=== PATIENT | female | born 1990 | race Caucasian/White ===

== ENCOUNTER 2018-11-27 16:49 | Emergency (ER) | payer OTHER ==
[2018-11-27 17:02] VITALS: BP 122/62; PULSE 64; TEMP 98.8; BMI 39.2
[2018-11-27] MEDS ORDERED: DEXAMETHASONE LIQUID 0.5 MG/5 ML PO ONE (17:17)
[2018-11-27] MEDS ORDERED: KETOROLAC TROMETHAMINE 30 MG/1 ML VIAL IM ONE (17:17)
[2018-11-27] MEDS ORDERED: KETOROLAC TROMETHAMINE 30 MG/1 ML VIAL ONE (17:50)
[2018-11-27] MEDS ORDERED: DEXAMETHASONE SOD PHOSPHATE 10 MG/1 ML VIAL ONE (17:50)
--- NOTE | 2018-11-27 18:37 | PDOC ---
History of Present Illness - General Chief Complaint: Sore Throat Stated Complaint: SORE THROAT Time Seen by Provider: 11/27/18 17:07 History Source: Patient Exam Limitations: No Limitations Past History - Past Medical History Allergies/Adverse Reactions: Allergies Allergy/AdvReac Type Severity Reaction Status Date / Time No Known Drug Allergies Allergy Verified 11/27/18 17:02 Home Medications: Ambulatory Orders Vit/Iron Fum/Folic AC [ Tablet] 1 each PO DAILY 05/19/15 Docusate Sodium [Colace -] 100 mg PO BID PRN #60 capsule 11/10/15 Ferrous Sulfate 325 mg PO BID #60 tablet 11/10/15 Ibuprofen [Motrin -] 600 mg PO QID #60 tablet 11/10/15 Oxycodone HCl/Acetaminophen [Percocet 5-325 mg Tablet -] 1 - 2 tab PO Q6H #10 tab MDD 6 11/10/15 Asthma: No Cancer: No Cardiac Disorders: No COPD: No Diabetes: No HTN: No Seizures: No Thyroid Disease: No - Reproductive History (#): 1 Para: 0 - Suicide/Smoking/Psychosocial Hx Smoking Status: No Smoking History: Never smoked Have you smoked in the past 12 months: No Number of Cigarettes Smoked Daily: 0 If you are a former smoker, when did you quit?: 1YR AGO 'Breaking Loose' booklet given: 04/05/14 Hx Alcohol Use: No Drug/Substance Use Hx: Yes (marijuana) Substance Use Type: None Hx Substance Use Treatment: No *Physical Exam - Vital Signs Last Vital Signs Temp Pulse Resp BP Pulse Ox 98.8 F 64 18 122/62 98 11/27/18 16:59 11/27/18 16:59 11/27/18 16:59 11/27/18 16:59 11/27/18 16:59 - Physical Exam General Appearance: No: Apparent Distress HEENT: positive: TMs Normal, Pharyngeal Erythema, Other (+B/L tonsillar enlargement with few spots along both tonsils, uvual midline). negative: Nasal Congestion, Rhinorrhea Respiratory/Chest: positive: Lungs Clear, Normal Breath Sounds. negative: Respiratory Distress Cardiovascular: positive: Regular Rhythm, Regular Rate, S1, S2. negative: Murmur Integumentary: positive: Normal Color. negative: Rash Neurologic: positive: Alert, Normal Mood/Affect ED Treatment Course - Medications Given in the ED: ED Medications Discontinued Medications Generic Name Dose Route Start Last Admin Trade Name Sharron PRN Reason Stop Dose Admin Dexamethasone 10 mg 11/27/18 17:17 11/27/18 17:56 Decadron Liquid - PO 11/27/18 17:18 10 mg ONCE ONE Administration Ketorolac Tromethamine 30 mg 11/27/18 17:17 11/27/18 17:57 Toradol Injection - IM 11/27/18 17:18 30 mg ONCE ONE Administration Medical Decision Making - Medical Decision Making 28 y/o F with no sig pmh presents with sore throat from yesterday along with low -grade fever of 99.8 today. Patient took 2 Advils this AM. Also with mild R ear pain. Denies congestion, rhinorrhea, sob, cp, abd pain, n/v/d. Is also concerned because she had oral sex with someone last week; states this is new partner she just recently started dating. Denies other complaints. Rapid strep negative Patient feeling much better after decadron and toradol GC pharyngeal culture also sent Likely tonsillitis stable for dc 11/27/18 18:32 *DC/Admit/Observation/Transfer Diagnosis at time of Disposition: Tonsillitis - Discharge Dispostion Disposition: HOME Condition at time of disposition: Improved Decision to Admit order: No - Referrals Referrals: Jacob Diaz MD [Primary Care Provider] - 2 Days - Patient Instructions Printed Discharge Instructions: DI for Pharyngitis/Tonsillopharyngitis -- Adult Additional Instructions: Thank you for choosing [facility]. It was a pleasure taking care of you. You may take Motrin 600 mg every 6 hours by mouth as needed for mild to moderate pain. Take Motrin with food. Do salt water gargles You will be called back regarding results of culture Follow-up with your doctor in 2 days Return to the Emergency Department if your symptoms worsen or persist or have other concerning symptoms. - Post Discharge Activity
== END 2018-11-27 18:46 | disposition home or self-care (01) ==
LOC: JERFT 16:49
PROC: 3E0233Z Introduction of Anti-inflammatory into Muscle, Percutaneous Approach (ICD-10-PCS; principal; 2018-11-27)
DX: J03.90 Acute tonsillitis, unspecified (principal)
CPT/HCPCS: 36415; 87070; 87077; 87880; 99282-25

== ENCOUNTER 2018-12-02 17:23 | Emergency (ER) | payer SELFPAY ==
[2018-12-02] MEDS ORDERED: AZITHROMYCIN 500 MG TABLET PO ONE (17:34)
[2018-12-02 17:35] VITALS: BP 142/73; PULSE 65; TEMP 98.1; BMI 39.9
--- NOTE | 2018-12-02 17:36 | PDOC ---
Rapid Medical Evaluation Chief Complaint: Revisit, Lab Variance Time Seen by Provider: 12/02/18 17:32 Medical Evaluation: Allergies Allergy/AdvReac Type Severity Reaction Status Date / Time No Known Drug Allergies Allergy Verified 12/02/18 17:31 12/02/18 17:32 28 year old female called positive chlamydia in throat culture. denies vaginal pain / discharge, + unprotected sex with exposure PE: patient alert ox3 A: chlamydia infection P: GC Ceftriaxone azithromycin Discharge Disposition - Diagnosis Chlamydia contact, untreated - Referrals - Patient Instructions - Post Discharge Activity
[2018-12-02] MEDS ORDERED: AZITHROMYCIN 250 MG TABLET ONE ×3 (17:41→18:04)
[2018-12-02] MEDS ORDERED: LIDOCAINE HCL 1%, 10 MG/ML (20ML VIAL) ONE (17:42)
--- NOTE | 2018-12-02 18:01 | PDOC ---
History of Present Illness - General Chief Complaint: Revisit, Lab Variance Stated Complaint: LAB TEST Time Seen by Provider: 12/02/18 17:32 History Source: Patient - History of Present Illness Initial Comments: 12/02/18 17:56 28 year old female called back for + chlamydia throat culture. patient denies abdominal pain, NVD, pelvic pain, urinary symptoms. + IUD reports unprotected sex with a new partner 6 months ago. 2 weeks ago with vaginal discharge none now. currently on her period 12/02/18 18:02 12/02/18 18:22 Past History - Past Medical History Allergies/Adverse Reactions: Allergies Allergy/AdvReac Type Severity Reaction Status Date / Time No Known Drug Allergies Allergy Verified 12/02/18 17:31 Home Medications: Ambulatory Orders Vit/Iron Fum/Folic AC [ Tablet] 1 each PO DAILY 05/19/15 Docusate Sodium [Colace -] 100 mg PO BID PRN #60 capsule 11/10/15 Ferrous Sulfate 325 mg PO BID #60 tablet 11/10/15 Ibuprofen [Motrin -] 600 mg PO QID #60 tablet 11/10/15 Oxycodone HCl/Acetaminophen [Percocet 5-325 mg Tablet -] 1 - 2 tab PO Q6H #10 tab MDD 6 11/10/15 Asthma: No Cancer: No Cardiac Disorders: No COPD: No Diabetes: No HTN: No Seizures: No Thyroid Disease: No - Reproductive History (#): 1 Para: 0 - Immunization History Immunization Up to Date: Yes - Suicide/Smoking/Psychosocial Hx Smoking Status: No Smoking History: Never smoked Have you smoked in the past 12 months: No Number of Cigarettes Smoked Daily: 0 If you are a former smoker, when did you quit?: 1YR AGO 'Breaking Loose' booklet given: 04/05/14 Hx Alcohol Use: No Drug/Substance Use Hx: No Substance Use Type: None Hx Substance Use Treatment: No Review of Systems - Review of Systems Able to Perform ROS?: Yes Is the patient limited Ghanaian proficient: No Constitutional: No: Symptoms Reported, See HPI, Chills, Diaphoresis, Fever, Loss of Appetite, Malaise, Night Sweats, Weakness, Weight Stable, Unintentional Wgt. Loss, Unexplained wgt Loss, Other HEENTM: No: Symptoms Reported, See HPI, Eye Pain, Blurred Vision, Tearing, Recent change in vision, Double Vision, Cataracts, Ear Pain, Ocular Prothesis, Ear Discharge, Nose Pain, Nose Congestion, Tinnitus, Nose Bleeding, Hearing Loss , Throat Pain, Throat Swelling, Mouth Pain, Dental Problems, Difficulty Swallowing, Mouth Swelling, Other ABD/GI: No: Symptoms Reported, See HPI, Abdominal Distended, Abd. Pain w/ defecation, Blood Streaked Bowels, Constipated, Diarrhea, Difficulty Swallowing , Nausea, Poor Appetite, Poor Fluid Intake, Rectal Bleeding, Vomiting, Indigestion, Abdominal cramping, Tarry Stools, Other *Physical Exam - Vital Signs Last Vital Signs Temp Pulse Resp BP Pulse Ox 98.1 F 65 18 142/73 100 12/02/18 17:32 12/02/18 17:32 12/02/18 17:32 12/02/18 17:32 12/02/18 17:32 - Physical Exam General Appearance: Yes: Appropriately Dressed HEENT: positive: Normal ENT Inspection Neck: positive: Trachea midline Respiratory/Chest: positive: Lungs Clear, Normal Breath Sounds Integumentary: positive: Normal Color, Dry, Warm Neurologic: positive: Fully Oriented, Alert, Normal Mood/Affect Medical Decision Making - Medical Decision Making 12/02/18 17:59 A: chlamydia infection; untreated P: GC ua + leuks currently on her menstrual period. no treatment urine patient reports that partner is being treated. 12/02/18 18:21 *DC/Admit/Observation/Transfer Diagnosis at time of Disposition: Chlamydia contact, untreated - Discharge Dispostion Disposition: HOME - Referrals Referrals: Jacob Diaz MD [Primary Care Provider] - - Patient Instructions Printed Discharge Instructions: Chlamydia: The Silent STD Additional Instructions: your partner should be treated. no sex for 1 week after treatment use protection - Post Discharge Activity
[2018-12-02 18:18] LABS: EPI CELLS 4.2 /HPF (0-5/HPF); HYALINE CASTS 0 /lpf (0-8); PH,URINE 6.5 (5.0-8.0); URINE APPEARANCE CLEAR; URINE BACTERIA 78.6 /hpf (NEGATIVE); URINE BILIRUBIN NEGATIVE (NEGATIVE); URINE COLOR YELLOW; URINE GLUCOSE (UA) NEGATIVE (NEGATIVE); URINE KETONE NEGATIVE (NEGATIVE); URINE LEUK ESTERASE 1+ (NEGATIVE); URINE NITRITE NEGATIVE (NEGATIVE); URINE PROTEIN NEGATIVE (NEGATIVE); URINE RBC 0 /hpf (0-4); URINE UROBILINOGEN 0.2 mg/dL (0.2-1.0); URINE WBC 8 /hpf (0-5)
== END 2018-12-02 18:30 | disposition home or self-care (01) ==
LOC: JERFT 17:23
DX: A74.9 Chlamydial infection, unspecified (principal)
CPT/HCPCS: 36415; 81003; 84703; 87491; 87591; 99282-25

== ENCOUNTER 2018-12-08 18:23 | Emergency (ER) | payer SELFPAY ==
[2018-12-08 18:33] VITALS: BP 132/61; PULSE 73; TEMP 98.2; BMI 34.9
--- NOTE | 2018-12-08 18:34 | PDOC ---
Rapid Medical Evaluation Chief Complaint: Revisit, Lab Variance Time Seen by Provider: 12/08/18 18:30 Medical Evaluation: Allergies Allergy/AdvReac Type Severity Reaction Status Date / Time No Known Drug Allergies Allergy Verified 12/08/18 18:31 Vital Signs Temp Pulse Resp BP Pulse Ox 98.2 F 73 19 132/61 99 12/08/18 18:28 12/08/18 18:28 12/08/18 18:28 12/08/18 18:28 12/08/18 18:28 12/08/18 18:32 Patient presents to ED with complaints of: urinary freq and bloating, also here for repeat gc/chylam patient on brief exam: vss, no cva tenderness Patient ordered for: gc, ua, u cx Patient to proceed to the ED Discharge Disposition - Diagnosis Urinary frequency, UTI (urinary tract infection) - Discharge Dispostion Disposition: HOME Condition at time of disposition: Stable Last Admission D/C Date: 11/10/15 - Prescriptions Prescriptions: Cephalexin [Keflex] 500 mg PO TID #15 capsule - Referrals Referrals: Jacob Diaz MD [Primary Care Provider] - - Patient Instructions Additional Instructions: Please take the antibiotics as directed. Return to the emergency room should symptoms worsen. Please follow up with your primary care physician in 1-2 days for further evaluation and treatment options without fail. - Post Discharge Activity
--- NOTE | 2018-12-08 18:50 | PDOC ---
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 12/08/18 18:50 She was also treated for STD 7 days ago and has not been active sexually since treatment Past History - Past Medical History Allergies/Adverse Reactions: Allergies Allergy/AdvReac Type Severity Reaction Status Date / Time No Known Drug Allergies Allergy Verified 12/08/18 18:31 Home Medications: Ambulatory Orders Cephalexin [Keflex] 500 mg PO TID #15 capsule 12/08/18 Asthma: No Cancer: No Cardiac Disorders: No COPD: No Diabetes: No HTN: No Seizures: No Thyroid Disease: No - Reproductive History (#): 1 Para: 0 - Immunization History Immunization Up to Date: Yes - Suicide/Smoking/Psychosocial Hx Smoking Status: No Smoking History: Never smoked Have you smoked in the past 12 months: No Number of Cigarettes Smoked Daily: 0 If you are a former smoker, when did you quit?: 1YR AGO Information on smoking cessation initiated: No 'Breaking Loose' booklet given: 04/05/14 Hx Alcohol Use: No Drug/Substance Use Hx: No Substance Use Type: None Hx Substance Use Treatment: No Review of Systems - Review of Systems Constitutional: No: Fever : Yes: Burning, Dysuria, Frequency *Physical Exam - Vital Signs Last Vital Signs Temp Pulse Resp BP Pulse Ox 98.2 F 73 19 132/61 99 12/08/18 18:28 12/08/18 18:28 12/08/18 18:28 12/08/18 18:28 12/08/18 18:28 - Physical Exam General Appearance: Yes: Appropriately Dressed, Obese. No: Apparent Distress HEENT: positive: Normal ENT Inspection, Normal Voice, Symmetrical Neck: positive: Trachea midline Respiratory/Chest: negative: Respiratory Distress Musculoskeletal: positive: Normal Inspection Extremity: positive: Normal Inspection Integumentary: positive: Normal Color Neurologic: positive: processing lead II-XII NML intact Medical Decision Making - Medical Decision Making 12/08/18 19:18 Will treat for UTI with keflex *DC/Admit/Observation/Transfer Diagnosis at time of Disposition: Urinary frequency, UTI (urinary tract infection) - Discharge Dispostion Disposition: HOME Condition at time of disposition: Stable Decision to Admit order: No - Prescriptions Prescriptions: Cephalexin [Keflex] 500 mg PO TID #15 capsule - Referrals Referrals: Jacob Diaz MD [Primary Care Provider] - - Patient Instructions Additional Instructions: Please take the antibiotics as directed. Return to the emergency room should symptoms worsen. Please follow up with your primary care physician in 1-2 days for further evaluation and treatment options without fail. - Post Discharge Activity
[2018-12-08 19:13] LABS: HYALINE CASTS 1 /lpf (0-8); PH,URINE 5.5 (5.0-8.0); URINE APPEARANCE CLEAR; URINE BACTERIA 22.5 /hpf (NEGATIVE); URINE BILIRUBIN NEGATIVE (NEGATIVE); URINE COLOR YELLOW; URINE GLUCOSE (UA) NEGATIVE (NEGATIVE); URINE KETONE TRACE (NEGATIVE); URINE LEUK ESTERASE NEGATIVE (NEGATIVE); URINE NITRITE NEGATIVE (NEGATIVE); URINE PROTEIN NEGATIVE (NEGATIVE); URINE RBC 1 /hpf (0-4); URINE UROBILINOGEN 0.2 mg/dL (0.2-1.0); URINE WBC 3 /hpf (0-5)
== END 2018-12-08 19:24 | disposition home or self-care (01) ==
LOC: JERFT 18:23
DX: N39.0 Urinary tract infection, site not specified (principal)
CPT/HCPCS: 36415; 81003; 87086; 87491; 87591; 99281-25

== ENCOUNTER → 2020-10-17 | Day surgery (SDC) | payer OTHER | END | disposition home or self-care (01) | LOC: JRADUS-SUR 08:31 | PROVIDERS: ATTEND Internal Medicine | PROC: 0H9T3ZX Drainage of Right Breast, Percutaneous Approach, Diagnostic (ICD-10-PCS; principal; 2020-10-17) | DX: N63.10 Unspecified lump in the right breast, unspecified quadrant (principal) | CPT/HCPCS: 19083; 87899; A4648 ==

== ENCOUNTER 2022-04-10 18:32 | Emergency (ER) | payer OTHER ==
[2022-04-10 18:45] VITALS: RESP 20; TEMP 98.1; BMI 29.3
[2022-04-10] MEDS ORDERED: TRANEXAMIC ACID 1000 MG/10 ML VIAL IVPUSH ONE (19:57)
[2022-04-10] MEDS ORDERED: TRANEXAMIC ACID 1000 MG/10 ML VIAL ONE (20:01)
[2022-04-10] MEDS ORDERED: SODIUM CHLORIDE 0.9% 500 ML INFUS.BAG IV ONE (20:03)
[2022-04-10 20:06] LABS: INR 0.92 (0.83-1.09); PROTHROMBIN TIME (PATIENT) 10.6 SEC (9.7-13.0)
[2022-04-10 20:08] VITALS: BP 146/86; PULSE 99
[2022-04-10 20:13] LABS: BASO % 0.6 % (0-2.0); EOS % 1.1 % (0-4.5); HEMATOCRIT 42.6 % (32.4-45.2); LYMPH % 22.9 % (8-40); MCH 29.9 pg (25.7-33.7); MCHC 32.8 g/dl (32.0-36.0); MEAN CELL VOLUME 91.2 fl (80-96); MEAN PLT VOLUME 9.2 fl (7.5-11.1); MONO % 6.1 % (3.8-10.2); NEUT % 69.3 % (42.8-82.8); PLATELET COUNT 355 10^3/uL (134-434); RBC 4.67 M/mm3 (3.60-5.2); WHITE BLOOD COUNT 14.4 K/mm3 (4.0-10.0)
[2022-04-10] MEDS ORDERED: ONDANSETRON 4 MG/2 ML VIAL ONE (20:13)
[2022-04-10 20:14] LABS: CALCIUM 8.7 mg/dL (8.5-10.1)
[2022-04-10 20:15] LABS: ALBUMIN 3.7 g/dl (3.4-5.0); BLOOD UREA NITROGEN 15.5 mg/dL (7-18)
[2022-04-10 20:18] LABS: CREATININE 0.9 mg/dL (0.55-1.3)
[2022-04-10 20:19] LABS: BILIRUBIN,TOTAL 0.2 mg/dL (0.2-1); TOT PROT 7.4 g/dl (6.4-8.2)
[2022-04-10] MEDS ORDERED: ONDANSETRON 4 MG/2 ML VIAL IVPUSH ONE (20:21)
== END 2022-04-10 20:40 | disposition short-term general hospital (02) ==
LOC: JER 18:32
PROC: 3E033GC Introduction of Other Therapeutic Substance into Peripheral Vein, Percutaneous Approach (ICD-10-PCS; principal; 2022-04-10)
DX: S09.90XA Unspecified injury of head, initial encounter (principal); M25.551 Pain in right hip; M25.521 Pain in right elbow; R10.9 Unspecified abdominal pain; V03.00XA Pedestrian on foot injured in collision with car, pick-up truck or van in nontraffic accident, initial encounter
CPT/HCPCS: 0241U-QW; 36415; 80053; 83605; 83690; 84484; 84703; 85025; 85610; 85730; 86850; 86900; 86901; 99285-25

== ENCOUNTER 2023-03-08 13:34 | Emergency (ER) | payer OTHER ==
[2023-03-08 13:45] VITALS: BP 142/74; RESP 18; TEMP 100.2; BMI 44.9
[2023-03-08] MEDS ORDERED: ACETAMINOPHEN 500 MG TABLET (FP) PO ONE (15:17)
[2023-03-08] MEDS ORDERED: ACETAMINOPHEN 500 MG TABLET (FP) ONE (15:20)
[2023-03-08] MEDS ORDERED: ALBUTEROL SO4 2.5/IPRATROPIUM 0.5 INH SOL 3 ML VIAL.NEB. NEB ONE (16:00)
[2023-03-08 16:52] VITALS: PULSE 97
== END 2023-03-08 16:59 | disposition home or self-care (01) ==
LOC: JERFT 13:34
PROC: 3E0F7GC Introduction of Other Therapeutic Substance into Respiratory Tract, Via Natural or Artificial Opening (ICD-10-PCS; principal; 2023-03-08)
DX: R50.9 Fever, unspecified (principal); R05.9 Cough, unspecified; J10.1 Influenza due to other identified influenza virus with other respiratory manifestations; Z20.822 Contact with and (suspected) exposure to COVID-19
CPT/HCPCS: 0241U-QW; 71046-TC-FY; 99284-25

== ENCOUNTER 2024-06-06 06:25 | Inpatient (IN) | payer OTHER ==
[2024-06-06 07:40] LABS: BASO % 1.1 % (0-2.0); EOS % 1.4 % (0-4.5); HEMATOCRIT 35.2 % (32.4-45.2); HEMOGLOBIN 11.9 GM/dL (10.7-15.3); LYMPH % 29.9 % (8-40); MCHC 33.9 g/dl (32.0-36.0); MEAN CELL VOLUME 85.5 fl (80-96); MEAN PLT VOLUME 10.2 fl (7.5-11.1); MONO % 5.6 % (3.8-10.2); PLATELET COUNT 218 10^3/uL (134-434); RBC 4.12 M/mm3 (3.60-5.2); WHITE BLOOD COUNT 9.3 K/mm3 (4.0-10.0)
[2024-06-06 07:43] VITALS: BMI 40.9
[2024-06-06] MEDS ORDERED: FENTANYL CITRATE/PF 50 MCG/ML VIAL ONE ×2 (07:52→07:55)
[2024-06-06] MEDS ORDERED: morphine SULFATE/PF 1 MG/2 ML (2cc Syringe - QUVA) ONE (07:52)
[2024-06-06 07:54] LABS: BLOOD UREA NITROGEN 10.1 mg/dL (7-18); CALCIUM 8.6 mg/dL (8.5-10.1); INR 0.95 (0.83-1.09); PROTHROMBIN TIME (PATIENT) 10.5 SEC (9.7-13.0)
[2024-06-06 07:56] LABS: ACTIVATED PTT 28.2 SECONDS (25.2-36.5)
[2024-06-06 07:58] LABS: CREATININE 0.5 mg/dL (0.55-1.3)
[2024-06-06] MEDS: CITRIC ACID/SODIUM CITRATE 30 ML UNIT-DOSE CUP PO ONE (08:10)
[2024-06-06] MEDS ORDERED: ONDANSETRON 4 MG/2 ML VIAL ONE (08:49)
[2024-06-06] MEDS ORDERED: ceFAZolin SODIUM 1 GM VIAL ONE (08:49)
[2024-06-06] MEDS ORDERED: OXYTOCIN 10 UNITS/ML VIAL ONE (09:08)
[2024-06-06] MEDS ORDERED: OXYTOCIN 20 UNITS in 0.9% NS 20 UNIT/1,000 ML INFUS.BAG IV ONE (10:53)
[2024-06-06] MEDS ORDERED: BENZOCAINE 28 GM HEMORRHOIDAL OINTMENT TP PRN (10:57)
[2024-06-06] MEDS ORDERED: WITCH HAZEL 50% (TUCKS) 40 PAD/JAR PAD TP PRN (10:57)
[2024-06-06] MEDS ORDERED: ACETAMINOPHEN 325 MG TABLET (FP) PO PRN (10:57)
[2024-06-06] MEDS ORDERED: BENZOCAINE 20% 57 GM BOTTLE TP PRN (10:57)
[2024-06-06] MEDS ORDERED: METHYLERGONOVINE MALEATE 0.2 MG/1 ML AMP IM PRN (10:57)
[2024-06-06] MEDS: OXYTOCIN 20 UNITS in 0.9% NS 20 UNIT/1,000 ML INFUS.BAG IV SCH (11:00)
[2024-06-06] MEDS ORDERED: oxyCODONE HCL 5 MG TABLET PO PRN ×2 (22:57)
[2024-06-07] MEDS: SIMETHICONE 80 MG TAB.CHEW (FP) PO PRN (02:35)
[2024-06-07] MEDS: IBUPROFEN 800 MG/8 ML IJ IVPB PRN (02:35)
[2024-06-07 07:44] LABS: BASO % 0.4 % (0-2.0); EOS % 1.4 % (0-4.5); HEMOGLOBIN 11.7 GM/dL (10.7-15.3); LYMPH % 22.6 % (8-40); MCH 28.5 pg (25.7-33.7); MCHC 32.5 g/dl (32.0-36.0); MEAN CELL VOLUME 87.7 fl (80-96); MEAN PLT VOLUME 10.5 fl (7.5-11.1); MONO % 5.2 % (3.8-10.2); NEUT % 70.4 % (42.8-82.8); PLATELET COUNT 219 10^3/uL (134-434); RBC 4.11 M/mm3 (3.60-5.2); RDW 14.3 % (11.6-15.6); WHITE BLOOD COUNT 10.6 K/mm3 (4.0-10.0)
[2024-06-07] MEDS: PRENATAL VITAMINS W/ FOLIC ACID TABLET (FP) PO SCH (10:00)
[2024-06-07] MEDS: ENOXAPARIN NA (PORCINE) 40 MG/0.4 ML DISP.SYRIN SQ SCH (10:00)
[2024-06-07] MEDS ORDERED: BISACODYL 10 MG SUPP.RECT RC PRN (10:57)
[2024-06-07] MEDS: IBUPROFEN 600 MG TABLET (FP) PO PRN (14:20)
[2024-06-07 22:13] VITALS: RESP 18
[2024-06-08 21:53] VITALS: TEMP 98.2
[2024-06-09 09:20] VITALS: BP 106/60; PULSE 67
== END 2024-06-09 12:29 | disposition home or self-care (01) | DRG 540 ==
LOC: JLDR 06:25 → J3W 13:15 → UNDODISIN 06-09 12:29
PROVIDERS: ADMIT Obstetrics & Gynecology; ATTEND Obstetrics & Gynecology
PROC: 10D00Z1 Extraction of Products of Conception, Low, Open Approach (ICD-10-PCS; principal; 2024-06-06)
DX: O34.211 Maternal care for low transverse scar from previous cesarean delivery (principal); N85.8 Other specified noninflammatory disorders of uterus; O99.214 Obesity complicating childbirth; O24.429 Gestational diabetes mellitus in childbirth, unspecified control; Z3A.38 38 weeks gestation of pregnancy; Z37.0 Single live birth
CPT/HCPCS: 36415; 59409; 80048; 82962; 85025; 85610; 85730; 86780; 86850; 86900; 86901; 88307-TC